=== PATIENT | male | born 1995 | race Caucasian/White ===

== ENCOUNTER 2016-10-05 16:58 | Emergency (ER) | payer OTHER ==
[~2016-10-05] VITALS: Ht 180.3 cm; Wt 70.9 kg
[2016-10-05 17:05] VITALS: BP 126/69; PULSE 66; RESP 16; O2SAT 100
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
[2016-10-05] MEDS ORDERED: Buprenorphine 2 mg SL Tablet SL ONE (22:00)
[2016-10-05] MEDS ORDERED: HYDR-3797 PO (22:10)
[2016-10-05] MEDS ORDERED: BUPR1TAB36 SL (22:10)
[2016-10-05 22:26] VITALS: BP 126/75; PULSE 65; RESP 16; O2SAT 99
== END 2016-10-05 22:27 | disposition home or self-care (01) ==
LOC: SED 16:58
DX: F41.9 Anxiety disorder, unspecified (principal)
CPT/HCPCS: 81002; 82075; 99283; Q0177